=== PATIENT | male | born 1960 | race Caucasian/White ===

== ENCOUNTER 2019-11-23 12:58 | Inpatient (IN) | payer BC, OTHER ==
[~2019-11-23] VITALS: Ht 172.7 cm; Wt 92.0 kg
[~2019-11-23 12:58] MED LIST: IBUP100T8 PO
--- NOTE | 2019-11-23 13:24 | PHYS DOC ---
Past Medical History Past Medical History: No Pertinent History Past Surgical History: Other Additional Past Surgical Histo: umbilical hernia repair, carpal tunnel release, tendon release left wrist Smoking Status: Current Every Day Smoker Alcohol Use: Occasionally Drug Use: None General Adult EDM: Chief Complaint: Abdominal pain HPI: HPI: Patient is a 59 year old male who was brought here by EMS from home due to abdominal pain, abdominal distention for the last 2 days. Patient feels his belly gets distended, he has been able to pass gas and have bowel movement, denies any fever, no chest pain, no trouble breathing. Patient described the pain as cramping in nature. Patient said he gave himself several enema but just liquid coming out. Review of Systems: Review of Systems: Constitutional: Denies fever or chills. [] Eyes: Denies change in visual acuity. [] HENT: Denies nasal congestion or sore throat. [] Respiratory: Denies cough or shortness of breath. [] Cardiovascular: Denies chest pain or edema. [] GI: Positive abdominal pain, nausea, diarrhea, no vomiting. : Denies dysuria. [] Musculoskeletal: Denies back pain or joint pain. [] Integument: Denies rash. [] Neurologic: Denies headache, focal weakness or sensory changes. [] Endocrine: Denies polyuria or polydipsia. [] Lymphatic: Denies swollen glands. [] Psychiatric: Denies depression or anxiety. [] Heart Score: Risk Factors: Risk Factors: DM, Current or recent (<one month) smoker, HTN, HLP, family history of CAD, obesity. Risk Scores: Score 0 - 3: 2.5% MACE over next 6 weeks - Discharge Home Score 4 - 6: 20.3% MACE over next 6 weeks - Admit for Clinical Observation Score 7 - 10: 72.7% MACE over next 6 weeks - Early Invasive Strategies Allergies: Allergies: Allergies Coded Allergies Type Severity Reaction Last Updated Verified No Known Drug Allergies 02/01/14 No Physical Exam: PE: Constitutional: Well developed, well nourished, no acute distress, non-toxic appearance. [] HENT: Normocephalic, atraumatic, bilateral external ears normal, oropharynx moist, no oral exudates, nose normal. [] Eyes: PERRLA, EOMI, conjunctiva normal, no discharge. [] Neck: Normal range of motion, no tenderness, supple, no stridor. [] Cardiovascular:Heart rate regular rhythm, no murmur [] Lungs & Thorax: Bilateral breath sounds clear to auscultation [] Abdomen: Hyperactive bowel sounds, no guarding, no rebound, soft, no tenderness, no masses, no pulsatile masses. abdomen is distended. Skin: Warm, dry, no erythema, no rash. [] Back: No tenderness, no CVA tenderness. [] Extremities: No tenderness, no cyanosis, no clubbing, ROM intact, no edema. [] Neurologic: Alert and oriented X 3, normal motor function, normal sensory function, no focal deficits noted. [] Psychologic: Affect normal, judgement normal, mood normal. [] Current Patient Data: Labs: Laboratory Tests Test 11/23/19 13:16 11/23/19 14:27 White Blood Count 15.2 x10^3/uL Red Blood Count 5.40 x10^6/uL Hemoglobin 16.2 g/dL Hematocrit 47.2 % Mean Corpuscular Volume 88 fL Mean Corpuscular Hemoglobin 30 pg Mean Corpuscular Hemoglobin Concent 34 g/dL Red Cell Distribution Width 13.2 % Platelet Count 268 x10^3/uL Neutrophils (%) (Auto) 83 % Lymphocytes (%) (Auto) 9 % Monocytes (%) (Auto) 8 % Eosinophils (%) (Auto) 1 % Basophils (%) (Auto) 0 % Neutrophils # (Auto) 12.5 x10^3/uL Lymphocytes # (Auto) 1.3 x10^3/uL Monocytes # (Auto) 1.2 x10^3/uL Eosinophils # (Auto) 0.1 x10^3/uL Basophils # (Auto) 0.1 x10^3/uL Prothrombin Time 13.4 SEC Prothromb Time International Ratio 1.1 Activated Partial Thromboplast Time 29 SEC Sodium Level 137 mmol/L Potassium Level 3.9 mmol/L Chloride Level 102 mmol/L Carbon Dioxide Level 25 mmol/L Anion Gap 10 Blood Urea Nitrogen 21 mg/dL Creatinine 1.5 mg/dL Estimated GFR (Cockcroft-Gault) 47.6 BUN/Creatinine Ratio 14 Glucose Level 97 mg/dL Calcium Level 8.8 mg/dL Magnesium Level 2.0 mg/dL Total Bilirubin 0.6 mg/dL Aspartate Amino Transf (AST/SGOT) 43 U/L Alanine Aminotransferase (ALT/SGPT) 84 U/L Alkaline Phosphatase 107 U/L Total Protein 7.9 g/dL Albumin 4.0 g/dL Albumin/Globulin Ratio 1.0 Lipase 116 U/L Urine Collection Type Void Urine Color Yellow Urine Clarity Clear Urine pH 6.0 Urine Specific [place] 1.010 Urine Protein Negative mg/dL Urine Glucose (UA) Negative mg/dL Urine Ketones (Stick) Negative mg/dL Urine Blood Small Urine Nitrite Negative Urine Bilirubin Negative Urine Urobilinogen Dipstick 0.2 mg/dL Urine Leukocyte Esterase Negative Urine RBC 1-2 /HPF Urine WBC 1-4 /HPF Urine Squamous Epithelial Cells Occ /LPF Urine Bacteria 0 /HPF Urine Hyaline Casts Occasional /HPF Urine Granular Casts Occasional /HPF Current Medications Medications (Trade) Dose Ordered Sig/Ean Route PRN Reason Start Time Stop Time Status Last Admin Dose Admin Metronidazole 100 ml @ 100 mls/hr Q8HRS IV 11/23/19 22:00 UNV Metronidazole 100 ml @ 100 mls/hr 1X ONCE IV 11/23/19 15:30 11/23/19 16:29 11/23/19 15:39 Vital Signs: Laboratory Tests Test 11/23/19 13:16 11/23/19 14:27 White Blood Count 15.2 x10^3/uL Red Blood Count 5.40 x10^6/uL Hemoglobin 16.2 g/dL Hematocrit 47.2 % Mean Corpuscular Volume 88 fL Mean Corpuscular Hemoglobin 30 pg Mean Corpuscular Hemoglobin Concent 34 g/dL Red Cell Distribution Width 13.2 % Platelet Count 268 x10^3/uL Neutrophils (%) (Auto) 83 % Lymphocytes (%) (Auto) 9 % Monocytes (%) (Auto) 8 % Eosinophils (%) (Auto) 1 % Basophils (%) (Auto) 0 % Neutrophils # (Auto) 12.5 x10^3/uL Lymphocytes # (Auto) 1.3 x10^3/uL Monocytes # (Auto) 1.2 x10^3/uL Eosinophils # (Auto) 0.1 x10^3/uL Basophils # (Auto) 0.1 x10^3/uL Prothrombin Time 13.4 SEC Prothromb Time International Ratio 1.1 Activated Partial Thromboplast Time 29 SEC Sodium Level 137 mmol/L Potassium Level 3.9 mmol/L Chloride Level 102 mmol/L Carbon Dioxide Level 25 mmol/L Anion Gap 10 Blood Urea Nitrogen 21 mg/dL Creatinine 1.5 mg/dL Estimated GFR (Cockcroft-Gault) 47.6 BUN/Creatinine Ratio 14 Glucose Level 97 mg/dL Calcium Level 8.8 mg/dL Magnesium Level 2.0 mg/dL Total Bilirubin 0.6 mg/dL Aspartate Amino Transf (AST/SGOT) 43 U/L Alanine Aminotransferase (ALT/SGPT) 84 U/L Alkaline Phosphatase 107 U/L Total Protein 7.9 g/dL Albumin 4.0 g/dL Albumin/Globulin Ratio 1.0 Lipase 116 U/L Urine Collection Type Void Urine Color Yellow Urine Clarity Clear Urine pH 6.0 Urine Specific [place] 1.010 Urine Protein Negative mg/dL Urine Glucose (UA) Negative mg/dL Urine Ketones (Stick) Negative mg/dL Urine Blood Small Urine Nitrite Negative Urine Bilirubin Negative Urine Urobilinogen Dipstick 0.2 mg/dL Urine Leukocyte Esterase Negative Urine RBC 1-2 /HPF Urine WBC 1-4 /HPF Urine Squamous Epithelial Cells Occ /LPF Urine Bacteria 0 /HPF Urine Hyaline Casts Occasional /HPF Urine Granular Casts Occasional /HPF Current Medications Medications (Trade) Dose Ordered Sig/Ean Route PRN Reason Start Time Stop Time Status Last Admin Dose Admin Metronidazole 100 ml @ 100 mls/hr Q8HRS IV 11/23/19 22:00 UNV Metronidazole 100 ml @ 100 mls/hr 1X ONCE IV 11/23/19 15:30 11/23/19 16:29 11/23/19 15:39 EKG: EKG: [] Radiology/Procedures: Radiology/Procedures: [][facility] [address] [place], [place] [id number] IMAGING REPORT Signed PATIENT: UMESH HERBERT ACCOUNT: [id number] : 1960 LOCATION: ER AGE: 59 SEX: M EXAM STATUS: REG ER ORD. PHYSICIAN: ZHANG SOTO DO REASON: ABDOMINAL PAIN, NAUSEA FOR TWO DAYS PROCEDURE: CT ABDOMEN PELVIS WO CONTRAST PQRS Compliance Statement: One or more of the following individualized dose reduction techniques were utilized for this examination: 1. Automated exposure control 2. Adjustment of the mA and/or kV according to patient size 3. Use of iterative reconstruction technique CT abdomen/pelvis without contrast 11/23/2019 1:42 PM INDICATION: Abdominal pain, nausea for 2 days COMPARISON: None available TECHNIQUE: Multiple axial CT images of the abdomen and pelvis were obtained without intravenous contrast. Coronal and sagittal reformats are provided. FINDINGS: Lung bases are clear. Heart size is within normal limits. Diffuse hepatic steatosis. Ill-defined hypoattenuating lesion in segment IV measures 13 mm (series 2, image 18). Spleen, bilateral adrenal glands, pancreas and gallbladder are normal in appearance. Abdominal aorta is normal in caliber. No suspicious retroperitoneal lymph nodes. No suspicious abdominal or pelvic lymph nodes. No free fluid or free intraperitoneal air. Fluid is noted within the left colon, sigmoid colon and rectum. Correlate with diarrhea. Appendix is normal. Mild hazy attenuation is identified within the root of small bowel mesentery. Borderline enlarged mesenteric lymph node is present measuring 9 mm (series 2, image 36). There is a 3 mm nonobstructing calculus in interpolar right kidney. There is a 5 mm calculus at the right ureteropelvic junction with mild right hydronephrosis. Urinary bladder is within normal limits given degree of distention. Prostate and seminal vesicles are normal. Small bilateral inguinal hernias containing fat. No suspicious osseous abnormality is identified. IMPRESSION: 1. 5 mm calculus is identified at the right ureteropelvic junction resulting in mild right hydronephrosis. There is an additional 3 mm nonobstructing calculus in the interpolar right kidney. 2. Mild hazy attenuation within the root of small bowel mesentery borderline enlarged lymph nodes suggestive of mesenteric adenitis. 3-6 month follow-up CT abdomen/pelvis is recommended for further evaluation. 3. Hepatic steatosis. Ill-defined hypoattenuating lesion in segment IV measures 13 mm and is indeterminate. Further catheterization with abdominal MRI with and without contrast is recommended. 4. Fluid-filled left colon, sigmoid colon and rectum. Correlate with history of diarrhea. Electronically signed by: Robin Mcgill MD (11/23/2019 2:21 PM) [id number] DICTATED and SIGNED BY: ROBIN MCGILL MD DATE: 11/23/19 1421 Course & Med Decision Making: Course & Med Decision Making Pertinent Labs and Imaging studies reviewed. (See chart for details) Patient is a 59-year-old male who was evaluated in ER due to abdominal pain with abdominal distention associated with nausea. Patient was found to have gastroenteritis and leukocytosis. He has a kidney stone on the right side kidney at the ureteropelvic junction, patient indicated that he always had a kidney stone there, and he denies any flank pain. Patient's symptoms today is not relating to kidney stone problem. Patient will be admitted to hospital for further evaluation and treatment. Discussed with Dr. Peñaloza who agreed to admit the patient. Dragon Disclaimer: Dragon Disclaimer: This electronic medical record was generated, in whole or in part, using a voice recognition dictation system. Departure Departure Impression: Primary Impression: Gastroenteritis Additional Impression: Leukocytosis Disposition: ADMITTED INPATIENT Admitting Physician: JOSE ALEJANDRO (Dr. Peñaloza) Condition: IMPROVED Referrals: CHENTE MIRANDA (PCP) Justicifation of Admission Dx: Justifications for Admission: Justification of Admission Dx: N/A ZHANG SOTO DO Nov 23, 2019 13:24
[2019-11-23 13:34] LABS: BASO # 0.1 x10^3/uL (0.0-0.2); BASO % 0 % (0-3); EOS # 0.1 x10^3/uL (0.0-0.7); EOS % 1 % (0-3); HEMATOCRIT 47.2 % (39.0-53.0); HEMOGLOBIN 16.2 g/dL (13.0-17.5); LYMPH # 1.3 x10^3/uL (1.0-4.8); LYMPH % 9 % (24-48); MEAN CORPUSCULAR HEMOGLOBIN 30 pg (25-35); MEAN CORPUSCULAR HGB CONC 34 g/dL (31-37); MEAN CORPUSCULAR VOLUME 88 fL (79-100); MONO # 1.2 x10^3/uL (0.0-1.1); MONO % 8 % (0-9); NEUT # 12.5 x10^3/uL (1.8-7.7); NEUT % 83 % (31-73); PLATELET COUNT 268 x10^3/uL (140-400); RED CELL DISTRIBUTION WIDTH 13.2 % (11.5-14.5); WHITE BLOOD COUNT 15.2 x10^3/uL (4.0-11.0)
[2019-11-23 13:39] LABS: CALCIUM 8.8 mg/dL (8.5-10.1); CREATININE 1.5 mg/dL (0.7-1.3); GFR 47.6; POTASSIUM 3.9 mmol/L (3.5-5.1)
[2019-11-23 13:44] LABS: PROTHROMBIN TIME PATIENT 13.4 SEC (11.7-14.0); TOTAL BILIRUBIN 0.6 mg/dL (0.2-1.0); TOTAL PROTEIN 7.9 g/dL (6.4-8.2)
--- NOTE | 2019-11-23 14:24 | RAD ---
PQRS Compliance Statement: One or more of the following individualized dose reduction techniques were utilized for this examination: 1. Automated exposure control 2. Adjustment of the mA and/or kV according to patient size 3. Use of iterative reconstruction technique CT abdomen/pelvis without contrast 11/23/2019 1:42 PM INDICATION: Abdominal pain, nausea for 2 days COMPARISON: None available TECHNIQUE: Multiple axial CT images of the abdomen and pelvis were obtained without intravenous contrast. Coronal and sagittal reformats are provided. FINDINGS: Lung bases are clear. Heart size is within normal limits. Diffuse hepatic steatosis. Ill-defined hypoattenuating lesion in segment IV measures 13 mm (series 2, image 18). Spleen, bilateral adrenal glands, pancreas and gallbladder are normal in appearance. Abdominal aorta is normal in caliber. No suspicious retroperitoneal lymph nodes. No suspicious abdominal or pelvic lymph nodes. No free fluid or free intraperitoneal air. Fluid is noted within the left colon, sigmoid colon and rectum. Correlate with diarrhea. Appendix is normal. Mild hazy attenuation is identified within the root of small bowel mesentery. Borderline enlarged mesenteric lymph node is present measuring 9 mm (series 2, image 36). There is a 3 mm nonobstructing calculus in interpolar right kidney. There is a 5 mm calculus at the right ureteropelvic junction with mild right hydronephrosis. Urinary bladder is within normal limits given degree of distention. Prostate and seminal vesicles are normal. Small bilateral inguinal hernias containing fat. No suspicious osseous abnormality is identified. IMPRESSION: 1. 5 mm calculus is identified at the right ureteropelvic junction resulting in mild right hydronephrosis. There is an additional 3 mm nonobstructing calculus in the interpolar right kidney. 2. Mild hazy attenuation within the root of small bowel mesentery borderline enlarged lymph nodes suggestive of mesenteric adenitis. 3-6 month follow-up CT abdomen/pelvis is recommended for further evaluation. 3. Hepatic steatosis. Ill-defined hypoattenuating lesion in segment IV measures 13 mm and is indeterminate. Further catheterization with abdominal MRI with and without contrast is recommended. 4. Fluid-filled left colon, sigmoid colon and rectum. Correlate with history of diarrhea. Electronically signed by: Faye Boogie MD (11/23/2019 2:21 PM) [id number]
[2019-11-23 14:37] LABS: BILIRUBIN,URINE NEGATIVE (NEG); CLARITY,URINE CLEAR; COLOR,URINE YELLOW; NITRITE,URINE NEGATIVE (NEG); PROTEIN,URINE NEGATIVE (NEG-TRACE); UROBILINOGEN,URINE 0.2 mg/dL (0.2 mg/dL)
[2019-11-23 14:48] LABS: BACTERIA,URINE 0 /HPF (0-FEW); GRANULAR CASTS,URINE OCCASIONAL /HPF; HYALINE CASTS, URINE OCCASIONAL /HPF; SQUAMOUS EPITHELIAL CELL,UR OCC /LPF
[2019-11-23] MEDS ORDERED: IV NORMAL SALINE 1000ML BAG 1,000 ML IV ONE (16:00)
[2019-11-23] MEDS ORDERED: ONDANSETRON PF 4 MG/2 ML VIAL. IV PRN (16:30)
[2019-11-23] MEDS: MORPHINE SULFATE 2 MG/ML VIAL. IV PRN ×2 (16:32→21:52)
--- NOTE | 2019-11-23 17:33 | PDOC1 ---
History and Physical Date of Admission: Date of Admission DATE: 11/23/19 TIME: 17:32 Chief Complaint: Problems: (1) Cervical sprain (2) Head injury, closed (3) Head injury, closed (4) Gastroenteritis (5) Leukocytosis Chief Complain: Abdominal pain History of Present Illness: HPI: Patient is a 59 year old male who was brought here by EMS from home due to abdominal pain, abdominal distention for the last 2 days. Patient feels his belly gets distended, he has been able to pass gas and have bowel movement, denies any fever, no chest pain, no trouble breathing. Patient described the pain as cramping in nature. Patient said he gave himself several enema but just liquid coming out. Past Medical/Surgical History: PMH/PSH: Close head injury gastroenteritis constipation Allergies: Allergies: Coded Allergies: No Known Drug Allergies (Unverified , 02/01/14) Family History: Family History: Hypertension Social History: Social History: He does not drink smoke or take drugs he works at [employer] Current Medications: Current Medications Current Medications Metronidazole 100 ml @ 100 mls/hr Q8HRS IV ; Start 11/23/19 at 22:00 Metronidazole 100 ml @ 100 mls/hr 1X ONCE IV Last administered on 11/23/19at 15:39; Start 11/23/19 at 15:30; Stop 11/23/19 at 16:29; Status DC Sodium Chloride 1,000 ml @ 1,000 mls/hr 1X ONCE IV Last administered on 11/23/19at 16:32; Start 11/23/19 at 16:00; Stop 11/23/19 at 16:59; Status DC Ondansetron HCl (Zofran) 4 mg PRN Q8HRS PRN IV NAUSEA/VOMITING; Start 11/23/19 at 16:30; Stop 11/24/19 at 16:29 Morphine Sulfate (Morphine Sulfate) 2 mg PRN Q2HR PRN IV PAIN Last administered on 11/23/19at 16:32; Start 11/23/19 at 16:30; Stop 11/24/19 at 16:29 Active Scripts Active Reported Ibuprofen 100 Mg Tablet 400 Mg PO PRN ROS: Review of Systems Review of System REVIEW OF SYSTEMS: GENERAL: Denies weakness SKIN: No bruising, hair changes or rashes. EYES: No blurred, double or loss of vision. NOSE AND THROAT: No history of nosebleeds, hoarseness or sore throat. HEART: No history of palpitations, chest pain or shortness of breath on exertion. LUNGS: Denies cough, hemoptysis, wheezing or shortness of breath. GASTROINTESTINAL: Complains of abdominal pain and constipation GENITOURINARY: No history of frequency, urgency, hesitancy or nocturia. NEUROLOGIC: Denies history of numbness, tingling, or tremor. PSYCHIATRIC: No history of panic, anxiety or depression. ENDOCRINE: No history of heat or cold intolerance, polyuria or polydipsia. EXTREMITIES: Denies joint pain, pain on walking or stiffness. Physical Exam: Vital Signs: Vital Signs Date Time Temp Pulse Resp B/P (MAP) Pulse Ox O2 Delivery O2 Flow Rate FiO2 11/23/19 13:20 98.7 70 16 173/103 (126) 98 Room Air 98.7 Physcial Exam: GEN: No apparent distress. Alert and oriented HEENT: Normal cephalic, atraumatic, external auditory canals are patent EYES: Extraocular muscles are intact, pupil are equally round and reactive to light and accommodation MUSCULOSKELETAL: Well developed , well nourished, good range of motion ENDOCRINE: No thyromegaly was palpated LYMPHATICS: No cervical chain or axillary nodes were noted HEMATOPOIETIC: No bruising NECK: Supple, no JVD, no thyromegaly was noted LUNGS: Clear to auscultation in all lung johnson without rhonchi or wheezing HEART: RRR, S!, S2 present. Peripheral pulses intact, no obvious murmurs no miguel ABDOMEN: Soft, nontender. Positive bowel sounds, no organomegaly, normal bowel sounds EXTREMITIES: Without clubbing, cyanosis, or edema. Pedal pulses intact. Negative Homans sign NEUROLOGIC: Normal speech and tone. A&O x 3, moves all extremities, no obvious focal deficits PSYCHIATRIC: Normal affect, normal mood. Stable SKIN: No ulcerations or rashes, good skin turgor, no jaundice VASCULAR: Good capillary refill, neurovascular bundle appears to be intact Labs: Labs: Laboratory Tests Test 11/23/19 13:16 11/23/19 14:27 White Blood Count 15.2 x10^3/uL (4.0-11.0) Red Blood Count 5.40 x10^6/uL (4.30-5.70) Hemoglobin 16.2 g/dL (13.0-17.5) Hematocrit 47.2 % (39.0-53.0) Mean Corpuscular Volume 88 fL (79-100) Mean Corpuscular Hemoglobin 30 pg (25-35) Mean Corpuscular Hemoglobin Concent 34 g/dL (31-37) Red Cell Distribution Width 13.2 % (11.5-14.5) Platelet Count 268 x10^3/uL (140-400) Neutrophils (%) (Auto) 83 % (31-73) Lymphocytes (%) (Auto) 9 % (24-48) Monocytes (%) (Auto) 8 % (0-9) Eosinophils (%) (Auto) 1 % (0-3) Basophils (%) (Auto) 0 % (0-3) Neutrophils # (Auto) 12.5 x10^3/uL (1.8-7.7) Lymphocytes # (Auto) 1.3 x10^3/uL (1.0-4.8) Monocytes # (Auto) 1.2 x10^3/uL (0.0-1.1) Eosinophils # (Auto) 0.1 x10^3/uL (0.0-0.7) Basophils # (Auto) 0.1 x10^3/uL (0.0-0.2) Prothrombin Time 13.4 SEC (11.7-14.0) Prothromb Time International Ratio 1.1 (0.8-1.1) Activated Partial Thromboplast Time 29 SEC (24-38) Sodium Level 137 mmol/L (136-145) Potassium Level 3.9 mmol/L (3.5-5.1) Chloride Level 102 mmol/L (98-107) Carbon Dioxide Level 25 mmol/L (21-32) Anion Gap 10 (6-14) Blood Urea Nitrogen 21 mg/dL (8-26) Creatinine 1.5 mg/dL (0.7-1.3) Estimated GFR (Cockcroft-Gault) 47.6 BUN/Creatinine Ratio 14 (6-20) Glucose Level 97 mg/dL (70-99) Calcium Level 8.8 mg/dL (8.5-10.1) Magnesium Level 2.0 mg/dL (1.8-2.4) Total Bilirubin 0.6 mg/dL (0.2-1.0) Aspartate Amino Transf (AST/SGOT) 43 U/L (15-37) Alanine Aminotransferase (ALT/SGPT) 84 U/L (16-63) Alkaline Phosphatase 107 U/L (46-116) Total Protein 7.9 g/dL (6.4-8.2) Albumin 4.0 g/dL (3.4-5.0) Albumin/Globulin Ratio 1.0 (1.0-1.7) Lipase 116 U/L (73-393) Urine Collection Type Void Urine Color Yellow Urine Clarity Clear Urine pH 6.0 (<5.0-8.0) Urine Specific [place] 1.010 (1.000-1.030) Urine Protein Negative mg/dL (NEG-TRACE) Urine Glucose (UA) Negative mg/dL (NEG) Urine Ketones (Stick) Negative mg/dL (NEG) Urine Blood Small (NEG) Urine Nitrite Negative (NEG) Urine Bilirubin Negative (NEG) Urine Urobilinogen Dipstick 0.2 mg/dL (0.2 mg/dL) Urine Leukocyte Esterase Negative (NEG) Urine RBC 1-2 /HPF (0-2) Urine WBC 1-4 /HPF (0-4) Urine Squamous Epithelial Cells Occ /LPF Urine Bacteria 0 /HPF (0-FEW) Urine Hyaline Casts Occasional /HPF Urine Granular Casts Occasional /HPF Laboratory Tests Test 11/23/19 13:16 11/23/19 14:27 White Blood Count 15.2 x10^3/uL (4.0-11.0) Red Blood Count 5.40 x10^6/uL (4.30-5.70) Hemoglobin 16.2 g/dL (13.0-17.5) Hematocrit 47.2 % (39.0-53.0) Mean Corpuscular Volume 88 fL (79-100) Mean Corpuscular Hemoglobin 30 pg (25-35) Mean Corpuscular Hemoglobin Concent 34 g/dL (31-37) Red Cell Distribution Width 13.2 % (11.5-14.5) Platelet Count 268 x10^3/uL (140-400) Neutrophils (%) (Auto) 83 % (31-73) Lymphocytes (%) (Auto) 9 % (24-48) Monocytes (%) (Auto) 8 % (0-9) Eosinophils (%) (Auto) 1 % (0-3) Basophils (%) (Auto) 0 % (0-3) Neutrophils # (Auto) 12.5 x10^3/uL (1.8-7.7) Lymphocytes # (Auto) 1.3 x10^3/uL (1.0-4.8) Monocytes # (Auto) 1.2 x10^3/uL (0.0-1.1) Eosinophils # (Auto) 0.1 x10^3/uL (0.0-0.7) Basophils # (Auto) 0.1 x10^3/uL (0.0-0.2) Prothrombin Time 13.4 SEC (11.7-14.0) Prothromb Time International Ratio 1.1 (0.8-1.1) Activated Partial Thromboplast Time 29 SEC (24-38) Sodium Level 137 mmol/L (136-145) Potassium Level 3.9 mmol/L (3.5-5.1) Chloride Level 102 mmol/L (98-107) Carbon Dioxide Level 25 mmol/L (21-32) Anion Gap 10 (6-14) Blood Urea Nitrogen 21 mg/dL (8-26) Creatinine 1.5 mg/dL (0.7-1.3) Estimated GFR (Cockcroft-Gault) 47.6 BUN/Creatinine Ratio 14 (6-20) Glucose Level 97 mg/dL (70-99) Calcium Level 8.8 mg/dL (8.5-10.1) Magnesium Level 2.0 mg/dL (1.8-2.4) Total Bilirubin 0.6 mg/dL (0.2-1.0) Aspartate Amino Transf (AST/SGOT) 43 U/L (15-37) Alanine Aminotransferase (ALT/SGPT) 84 U/L (16-63) Alkaline Phosphatase 107 U/L (46-116) Total Protein 7.9 g/dL (6.4-8.2) Albumin 4.0 g/dL (3.4-5.0) Albumin/Globulin Ratio 1.0 (1.0-1.7) Lipase 116 U/L (73-393) Urine Collection Type Void Urine Color Yellow Urine Clarity Clear Urine pH 6.0 (<5.0-8.0) Urine Specific [place] 1.010 (1.000-1.030) Urine Protein Negative mg/dL (NEG-TRACE) Urine Glucose (UA) Negative mg/dL (NEG) Urine Ketones (Stick) Negative mg/dL (NEG) Urine Blood Small (NEG) Urine Nitrite Negative (NEG) Urine Bilirubin Negative (NEG) Urine Urobilinogen Dipstick 0.2 mg/dL (0.2 mg/dL) Urine Leukocyte Esterase Negative (NEG) Urine RBC 1-2 /HPF (0-2) Urine WBC 1-4 /HPF (0-4) Urine Squamous Epithelial Cells Occ /LPF Urine Bacteria 0 /HPF (0-FEW) Urine Hyaline Casts Occasional /HPF Urine Granular Casts Occasional /HPF Assessment/Plan Assessment/Plan Leukocytosis and enteritis and [place] male with constipation Plan IV antibiotics IV fluids Consult GI Home meds DVT prophylaxis Full code Justicifation of Admission Dx: Justifications for Admission: Justification of Admission Dx: N/A JACKI VENCES III DO Nov 23, 2019 17:33
[2019-11-23 19:00] VITALS: BP 155/88
[2019-11-23] MEDS: IV NORMAL SALINE 1000ML BAG 1,000 ML IV SCH (19:30)
[2019-11-23] MEDS: ACETAMINOPHEN 325 MG TABLET. PO PRN (19:31)
[2019-11-23 23:00] VITALS: BP 133/87
[2019-11-24 03:00] VITALS: BP 133/76
[2019-11-24] MEDS: IV NORMAL SALINE 1000ML BAG 1,000 ML IV SCH ×2 (04:43→14:38)
[2019-11-24] MEDS: ACETAMINOPHEN 325 MG TABLET. PO PRN ×2 (06:09→14:41)
[2019-11-24 07:00] VITALS: BP 99/68
--- NOTE | 2019-11-24 09:13 | NUR ---
SW following. Discussed with RN, pt from home, room air, clear liquid diet. RN anticipates pt will discharge home on PO abx. Addendum: 11/24/19 at 1527 by [employer] Pt having an EGD and colonoscopy tomorrow (11/25/2019). MÓNICA discussed with Dr. Boyd, possible transfer to [facility] if stone is not passed. MÓNICA will continue to follow.
--- NOTE | 2019-11-24 09:16 | PDOC ---
PROGRESS NOTES History of Present Illness History of Present Illness impression ACUTE ABDOMINAL PAIN, RLQ Leukocytosis enteritis in 59 yr old male with constipation 5 mm calculus is identified at the right ureteropelvic junction resulting in mild right hydronephrosis. There is an additional 3 mm nonobstructing calculus in the interpolar right kidney. Hepatic steatosis. Ill-defined hypoattenuating lesion in segment IV measures 13 mm and is indeterminate. Further catheterization with abdominal MRI with and without contrast is recommended. Plan IV antibiotics IV fluids NPO Consult GI Home meds DVT prophylaxis Full code urology consult may be indicated D/W CASE MGT Vitals Vitals Vital Signs Date Time Temp Pulse Resp B/P (MAP) Pulse Ox O2 Delivery O2 Flow Rate FiO2 11/24/19 07:54 Room Air 11/24/19 07:00 97.9 59 18 99/68 (78) 93 97.9 Physical Exam Physical Exam HEENT: Normal cephalic, atraumatic, external auditory canals are patent EYES: Extraocular muscles are intact, pupil are equally round and reactive to light and accommodation MUSCULOSKELETAL: Well developed , well nourished, good range of motion ENDOCRINE: No thyromegaly was palpated LYMPHATICS: No cervical chain or axillary nodes were noted HEMATOPOIETIC: No bruising NECK: Supple, no JVD, no thyromegaly was noted LUNGS: Clear to auscultation in all lung johnson without rhonchi or wheezing HEART: RRR, S!, S2 present. Peripheral pulses intact, no obvious murmurs noted ABDOMEN: Soft, nontender. Positive bowel sounds, no organomegaly, normal bowel sounds MILD RLQ TENDERNESS NO REBOUND EXTREMITIES: Without clubbing, cyanosis, or edema. Pedal pulses intact. Negative Homans sign NEUROLOGIC: Normal speech and tone. A&O x 3, moves all extremities, no obvious focal deficits PSYCHIATRIC: Normal affect, normal mood. Stable SKIN: No ulcerations or rashes, good skin turgor, no jaundice VASCULAR: Good capillary refill, neurovascular bundle appears to be intact General: Alert, Oriented X3, Cooperative, No acute distress Heart: Regular rate, Normal S1, Normal S2 Abdomen: Normal bowel sounds, Soft Extremities: No cyanosis Skin: No rashes Labs LABS PQRS Compliance Statement: One or more of the following individualized dose reduction techniques were utilized for this examination: 1. Automated exposure control 2. Adjustment of the mA and/or kV according to patient size 3. Use of iterative reconstruction technique CT abdomen/pelvis without contrast 11/23/2019 1:42 PM INDICATION: Abdominal pain, nausea for 2 days COMPARISON: None available TECHNIQUE: Multiple axial CT images of the abdomen and pelvis were obtained without intravenous contrast. Coronal and sagittal reformats are provided. FINDINGS: Lung bases are clear. Heart size is within normal limits. Diffuse hepatic steatosis. Ill-defined hypoattenuating lesion in segment IV measures 13 mm (series 2, image 18). Spleen, bilateral adrenal glands, pancreas and gallbladder are normal in appearance. Abdominal aorta is normal in caliber. No suspicious retroperitoneal lymph nodes. No suspicious abdominal or pelvic lymph nodes. No free fluid or free intraperitoneal air. Fluid is noted within the left colon, sigmoid colon and rectum. Correlate with diarrhea. Appendix is normal. Mild hazy attenuation is identified within the root of small bowel mesentery. Borderline enlarged mesenteric lymph node is present measuring 9 mm (series 2, image 36). There is a 3 mm nonobstructing calculus in interpolar right kidney. There is a 5 mm calculus at the right ureteropelvic junction with mild right hydronephrosis. Urinary bladder is within normal limits given degree of distention. Prostate and seminal vesicles are normal. Small bilateral inguinal hernias containing fat. No suspicious osseous abnormality is identified. IMPRESSION: 1. 5 mm calculus is identified at the right ureteropelvic junction resulting in mild right hydronephrosis. There is an additional 3 mm nonobstructing calculus in the interpolar right kidney. 2. Mild hazy attenuation within the root of small bowel mesentery borderline enlarged lymph nodes suggestive of mesenteric adenitis. 3-6 month follow-up CT abdomen/pelvis is recommended for further evaluation. 3. Hepatic steatosis. Ill-defined hypoattenuating lesion in segment IV measures 13 mm and is indeterminate. Further catheterization with abdominal MRI with and without contrast is recommended. 4. Fluid-filled left colon, sigmoid colon and rectum. Correlate with history of diarrhea. Electronically signed by: Robin Boogie MD (11/23/2019 2:21 PM) [id number] DICTATED and SIGNED BY: ROBIN BOOGIE MD DATE: 11/23/19 1421 Laboratory Tests Test 11/23/19 13:16 11/23/19 14:27 White Blood Count 15.2 x10^3/uL (4.0-11.0) Red Blood Count 5.40 x10^6/uL (4.30-5.70) Hemoglobin 16.2 g/dL (13.0-17.5) Hematocrit 47.2 % (39.0-53.0) Mean Corpuscular Volume 88 fL (79-100) Mean Corpuscular Hemoglobin 30 pg (25-35) Mean Corpuscular Hemoglobin Concent 34 g/dL (31-37) Red Cell Distribution Width 13.2 % (11.5-14.5) Platelet Count 268 x10^3/uL (140-400) Neutrophils (%) (Auto) 83 % (31-73) Lymphocytes (%) (Auto) 9 % (24-48) Monocytes (%) (Auto) 8 % (0-9) Eosinophils (%) (Auto) 1 % (0-3) Basophils (%) (Auto) 0 % (0-3) Neutrophils # (Auto) 12.5 x10^3/uL (1.8-7.7) Lymphocytes # (Auto) 1.3 x10^3/uL (1.0-4.8) Monocytes # (Auto) 1.2 x10^3/uL (0.0-1.1) Eosinophils # (Auto) 0.1 x10^3/uL (0.0-0.7) Basophils # (Auto) 0.1 x10^3/uL (0.0-0.2) Prothrombin Time 13.4 SEC (11.7-14.0) Prothromb Time International Ratio 1.1 (0.8-1.1) Activated Partial Thromboplast Time 29 SEC (24-38) Sodium Level 137 mmol/L (136-145) Potassium Level 3.9 mmol/L (3.5-5.1) Chloride Level 102 mmol/L (98-107) Carbon Dioxide Level 25 mmol/L (21-32) Anion Gap 10 (6-14) Blood Urea Nitrogen 21 mg/dL (8-26) Creatinine 1.5 mg/dL (0.7-1.3) Estimated GFR (Cockcroft-Gault) 47.6 BUN/Creatinine Ratio 14 (6-20) Glucose Level 97 mg/dL (70-99) Calcium Level 8.8 mg/dL (8.5-10.1) Magnesium Level 2.0 mg/dL (1.8-2.4) Total Bilirubin 0.6 mg/dL (0.2-1.0) Aspartate Amino Transf (AST/SGOT) 43 U/L (15-37) Alanine Aminotransferase (ALT/SGPT) 84 U/L (16-63) Alkaline Phosphatase 107 U/L (46-116) Total Protein 7.9 g/dL (6.4-8.2) Albumin 4.0 g/dL (3.4-5.0) Albumin/Globulin Ratio 1.0 (1.0-1.7) Lipase 116 U/L (73-393) Urine Collection Type Void Urine Color Yellow Urine Clarity Clear Urine pH 6.0 (<5.0-8.0) Urine Specific [place] 1.010 (1.000-1.030) Urine Protein Negative mg/dL (NEG-TRACE) Urine Glucose (UA) Negative mg/dL (NEG) Urine Ketones (Stick) Negative mg/dL (NEG) Urine Blood Small (NEG) Urine Nitrite Negative (NEG) Urine Bilirubin Negative (NEG) Urine Urobilinogen Dipstick 0.2 mg/dL (0.2 mg/dL) Urine Leukocyte Esterase Negative (NEG) Urine RBC 1-2 /HPF (0-2) Urine WBC 1-4 /HPF (0-4) Urine Squamous Epithelial Cells Occ /LPF Urine Bacteria 0 /HPF (0-FEW) Urine Hyaline Casts Occasional /HPF Urine Granular Casts Occasional /HPF Assessment and Plan Assessmemt and Plan Problems Medical Problems: (1) Gastroenteritis Status: Acute (2) Leukocytosis Status: Acute Comment Review of Relevant I have reviewed the following items colleen (where applicable) has been applied. Labs Laboratory Tests Test 11/23/19 13:16 11/23/19 14:27 White Blood Count 15.2 x10^3/uL (4.0-11.0) Red Blood Count 5.40 x10^6/uL (4.30-5.70) Hemoglobin 16.2 g/dL (13.0-17.5) Hematocrit 47.2 % (39.0-53.0) Mean Corpuscular Volume 88 fL (79-100) Mean Corpuscular Hemoglobin 30 pg (25-35) Mean Corpuscular Hemoglobin Concent 34 g/dL (31-37) Red Cell Distribution Width 13.2 % (11.5-14.5) Platelet Count 268 x10^3/uL (140-400) Neutrophils (%) (Auto) 83 % (31-73) Lymphocytes (%) (Auto) 9 % (24-48) Monocytes (%) (Auto) 8 % (0-9) Eosinophils (%) (Auto) 1 % (0-3) Basophils (%) (Auto) 0 % (0-3) Neutrophils # (Auto) 12.5 x10^3/uL (1.8-7.7) Lymphocytes # (Auto) 1.3 x10^3/uL (1.0-4.8) Monocytes # (Auto) 1.2 x10^3/uL (0.0-1.1) Eosinophils # (Auto) 0.1 x10^3/uL (0.0-0.7) Basophils # (Auto) 0.1 x10^3/uL (0.0-0.2) Prothrombin Time 13.4 SEC (11.7-14.0) Prothromb Time International Ratio 1.1 (0.8-1.1) Activated Partial Thromboplast Time 29 SEC (24-38) Sodium Level 137 mmol/L (136-145) Potassium Level 3.9 mmol/L (3.5-5.1) Chloride Level 102 mmol/L (98-107) Carbon Dioxide Level 25 mmol/L (21-32) Anion Gap 10 (6-14) Blood Urea Nitrogen 21 mg/dL (8-26) Creatinine 1.5 mg/dL (0.7-1.3) Estimated GFR (Cockcroft-Gault) 47.6 BUN/Creatinine Ratio 14 (6-20) Glucose Level 97 mg/dL (70-99) Calcium Level 8.8 mg/dL (8.5-10.1) Magnesium Level 2.0 mg/dL (1.8-2.4) Total Bilirubin 0.6 mg/dL (0.2-1.0) Aspartate Amino Transf (AST/SGOT) 43 U/L (15-37) Alanine Aminotransferase (ALT/SGPT) 84 U/L (16-63) Alkaline Phosphatase 107 U/L (46-116) Total Protein 7.9 g/dL (6.4-8.2) Albumin 4.0 g/dL (3.4-5.0) Albumin/Globulin Ratio 1.0 (1.0-1.7) Lipase 116 U/L (73-393) Urine Collection Type Void Urine Color Yellow Urine Clarity Clear Urine pH 6.0 (<5.0-8.0) Urine Specific [place] 1.010 (1.000-1.030) Urine Protein Negative mg/dL (NEG-TRACE) Urine Glucose (UA) Negative mg/dL (NEG) Urine Ketones (Stick) Negative mg/dL (NEG) Urine Blood Small (NEG) Urine Nitrite Negative (NEG) Urine Bilirubin Negative (NEG) Urine Urobilinogen Dipstick 0.2 mg/dL (0.2 mg/dL) Urine Leukocyte Esterase Negative (NEG) Urine RBC 1-2 /HPF (0-2) Urine WBC 1-4 /HPF (0-4) Urine Squamous Epithelial Cells Occ /LPF Urine Bacteria 0 /HPF (0-FEW) Urine Hyaline Casts Occasional /HPF Urine Granular Casts Occasional /HPF Laboratory Tests Test 11/23/19 13:16 11/23/19 14:27 White Blood Count 15.2 x10^3/uL (4.0-11.0) Red Blood Count 5.40 x10^6/uL (4.30-5.70) Hemoglobin 16.2 g/dL (13.0-17.5) Hematocrit 47.2 % (39.0-53.0) Mean Corpuscular Volume 88 fL (79-100) Mean Corpuscular Hemoglobin 30 pg (25-35) Mean Corpuscular Hemoglobin Concent 34 g/dL (31-37) Red Cell Distribution Width 13.2 % (11.5-14.5) Platelet Count 268 x10^3/uL (140-400) Neutrophils (%) (Auto) 83 % (31-73) Lymphocytes (%) (Auto) 9 % (24-48) Monocytes (%) (Auto) 8 % (0-9) Eosinophils (%) (Auto) 1 % (0-3) Basophils (%) (Auto) 0 % (0-3) Neutrophils # (Auto) 12.5 x10^3/uL (1.8-7.7) Lymphocytes # (Auto) 1.3 x10^3/uL (1.0-4.8) Monocytes # (Auto) 1.2 x10^3/uL (0.0-1.1) Eosinophils # (Auto) 0.1 x10^3/uL (0.0-0.7) Basophils # (Auto) 0.1 x10^3/uL (0.0-0.2) Prothrombin Time 13.4 SEC (11.7-14.0) Prothromb Time International Ratio 1.1 (0.8-1.1) Activated Partial Thromboplast Time 29 SEC (24-38) Sodium Level 137 mmol/L (136-145) Potassium Level 3.9 mmol/L (3.5-5.1) Chloride Level 102 mmol/L (98-107) Carbon Dioxide Level 25 mmol/L (21-32) Anion Gap 10 (6-14) Blood Urea Nitrogen 21 mg/dL (8-26) Creatinine 1.5 mg/dL (0.7-1.3) Estimated GFR (Cockcroft-Gault) 47.6 BUN/Creatinine Ratio 14 (6-20) Glucose Level 97 mg/dL (70-99) Calcium Level 8.8 mg/dL (8.5-10.1) Magnesium Level 2.0 mg/dL (1.8-2.4) Total Bilirubin 0.6 mg/dL (0.2-1.0) Aspartate Amino Transf (AST/SGOT) 43 U/L (15-37) Alanine Aminotransferase (ALT/SGPT) 84 U/L (16-63) Alkaline Phosphatase 107 U/L (46-116) Total Protein 7.9 g/dL (6.4-8.2) Albumin 4.0 g/dL (3.4-5.0) Albumin/Globulin Ratio 1.0 (1.0-1.7) Lipase 116 U/L (73-393) Urine Collection Type Void Urine Color Yellow Urine Clarity Clear Urine pH 6.0 (<5.0-8.0) Urine Specific [place] 1.010 (1.000-1.030) Urine Protein Negative mg/dL (NEG-TRACE) Urine Glucose (UA) Negative mg/dL (NEG) Urine Ketones (Stick) Negative mg/dL (NEG) Urine Blood Small (NEG) Urine Nitrite Negative (NEG) Urine Bilirubin Negative (NEG) Urine Urobilinogen Dipstick 0.2 mg/dL (0.2 mg/dL) Urine Leukocyte Esterase Negative (NEG) Urine RBC 1-2 /HPF (0-2) Urine WBC 1-4 /HPF (0-4) Urine Squamous Epithelial Cells Occ /LPF Urine Bacteria 0 /HPF (0-FEW) Urine Hyaline Casts Occasional /HPF Urine Granular Casts Occasional /HPF Medications Current Medications Metronidazole 100 ml @ 100 mls/hr Q8HRS IV ; Start 11/23/19 at 22:00; Stop 11/23/19 at 19:02; Status DC Metronidazole 100 ml @ 100 mls/hr 1X ONCE IV Last administered on 11/23/19at 15:39; Start 11/23/19 at 15:30; Stop 11/23/19 at 16:29; Status DC Sodium Chloride 1,000 ml @ 1,000 mls/hr 1X ONCE IV Last administered on 11/23/19at 16:32; Start 11/23/19 at 16:00; Stop 11/23/19 at 16:59; Status DC Ondansetron HCl (Zofran) 4 mg PRN Q8HRS PRN IV NAUSEA/VOMITING; Start 11/23/19 at 16:30; Stop 11/24/19 at 16:29 Morphine Sulfate (Morphine Sulfate) 2 mg PRN Q2HR PRN IV PAIN Last administered on 11/23/19at 21:52; Start 11/23/19 at 16:30; Stop 11/24/19 at 16:29 Metronidazole 100 ml @ 100 mls/hr Q8HRS IV Last administered on 11/24/19at 06:05; Start 11/23/19 at 22:00 Acetaminophen (Tylenol) 650 mg PRN Q4HRS PRN PO PAIN Last administered on 11/24/19at 06:09; Start 11/23/19 at 19:15 Sodium Chloride 1,000 ml @ 100 mls/hr Q10H IV Last administered on 11/24/19at 04:43; Start 11/23/19 at 19:15 Active Scripts Active Reported Ibuprofen 100 Mg Tablet 400 Mg PO PRN Vitals/I & O Vital Sign - Last 24 Hours 11/23/19 11/23/19 11/23/19 11/23/19 13:20 14:57 15:57 16:57 Temp 98.7 98.7 Pulse 70 64 64 64 Resp 16 B/P (MAP) 173/103 (126) 166/86 (112) 169/84 (112) 164/81 (108) Pulse Ox 98 97 97 95 O2 Delivery Room Air Room Air Room Air Room Air 11/23/19 11/23/19 11/23/19 11/23/19 17:57 19:00 20:00 21:52 Temp 98.1 98.1 Pulse 66 72 Resp 16 20 B/P (MAP) 168/87 (114) 155/88 (110) Pulse Ox 96 96 96 O2 Delivery Room Air Room Air Room Air Room Air 11/23/19 11/23/19 11/24/19 11/24/19 22:22 23:00 03:00 07:00 Temp 98.4 98.0 97.9 98.4 98.0 97.9 Pulse 66 61 59 Resp 20 18 18 18 B/P (MAP) 133/87 (102) 133/76 (95) 99/68 (78) Pulse Ox 96 95 95 93 O2 Delivery Room Air Room Air Room Air Room Air 11/24/19 07:54 O2 Delivery Room Air Intake and Output 11/23/19 11/23/19 11/24/19 15:00 23:00 07:00 Intake Total 0 ml 300 ml Balance 0 ml 300 ml Justicifation of Admission Dx: Justifications for Admission: Justification of Admission Dx: N/A ALE VALADEZ MD Nov 24, 2019 09:16
--- NOTE | 2019-11-24 09:51 | PDOC2 ---
GI CONSULT Reason For Consult: abd pain HPI: HPI: 59 y/o male w/ several days of abdominal pain - "excruciating" bloating. Started in epigastrium and moved straight down and then around to right side, also felt some in right flank. Possible precipitating factors include working outside in the heat for several day and eating "a lot" of red meat and pizza with mushrooms. Was concerned he might "have a blockage" so he tried enemas x 2 (though no issues w/ constipation). Feeling better this morning, tolerating clears. Stooled after enemas yesterday, maybe that helped. Some acid reflux lately - Tums and Rolaids aren't really helping. Has gained weight since the pandemic started - about 15 pounds. Daily ibuprofen for chronic neck and back pain. Denies dysphagia, n/v, diarrhea, hematochezia, and melena. No previous EGD. Thinks last colonoscopy ~5-6 years ago - checked with office and colonoscopy w/ Dr. Heart in 2008 w/ hyperplastic polyps and internal and external hemorrhoids. No GB, liver, pancreas, or PUD history. PMH: PMH: umbilical hernia repair w/ mesh (Dr. Hollins), right CTR, right thumb surgery, LUE tendon repair FH: Family History: Cancer (breast, lung) Social History: Smoke: No ALCOHOL: none ROS: GEN: Denies fevers, chills, sweats HEENT: Denies blurred vision, sore throat CV: Denies chest pain RESP: Denies shortness of air, cough GI: Per HPI : Denies hematuria, dysuria ENDO: +weight gain NEURO: Denies confusion, dizziness MSK: +chronic back and neck pain SKIN: Denies jaundice, pruritus Vitals: Vitals: Vital Signs Date Time Temp Pulse Resp B/P (MAP) Pulse Ox O2 Delivery O2 Flow Rate FiO2 11/24/19 07:54 Room Air 11/24/19 07:00 97.9 59 18 99/68 (78) 93 97.9 Labs: Labs: Laboratory Tests Test 11/23/19 13:16 11/23/19 14:27 White Blood Count 15.2 x10^3/uL (4.0-11.0) Red Blood Count 5.40 x10^6/uL (4.30-5.70) Hemoglobin 16.2 g/dL (13.0-17.5) Hematocrit 47.2 % (39.0-53.0) Mean Corpuscular Volume 88 fL (79-100) Mean Corpuscular Hemoglobin 30 pg (25-35) Mean Corpuscular Hemoglobin Concent 34 g/dL (31-37) Red Cell Distribution Width 13.2 % (11.5-14.5) Platelet Count 268 x10^3/uL (140-400) Neutrophils (%) (Auto) 83 % (31-73) Lymphocytes (%) (Auto) 9 % (24-48) Monocytes (%) (Auto) 8 % (0-9) Eosinophils (%) (Auto) 1 % (0-3) Basophils (%) (Auto) 0 % (0-3) Neutrophils # (Auto) 12.5 x10^3/uL (1.8-7.7) Lymphocytes # (Auto) 1.3 x10^3/uL (1.0-4.8) Monocytes # (Auto) 1.2 x10^3/uL (0.0-1.1) Eosinophils # (Auto) 0.1 x10^3/uL (0.0-0.7) Basophils # (Auto) 0.1 x10^3/uL (0.0-0.2) Prothrombin Time 13.4 SEC (11.7-14.0) Prothromb Time International Ratio 1.1 (0.8-1.1) Activated Partial Thromboplast Time 29 SEC (24-38) Sodium Level 137 mmol/L (136-145) Potassium Level 3.9 mmol/L (3.5-5.1) Chloride Level 102 mmol/L (98-107) Carbon Dioxide Level 25 mmol/L (21-32) Anion Gap 10 (6-14) Blood Urea Nitrogen 21 mg/dL (8-26) Creatinine 1.5 mg/dL (0.7-1.3) Estimated GFR (Cockcroft-Gault) 47.6 BUN/Creatinine Ratio 14 (6-20) Glucose Level 97 mg/dL (70-99) Calcium Level 8.8 mg/dL (8.5-10.1) Magnesium Level 2.0 mg/dL (1.8-2.4) Total Bilirubin 0.6 mg/dL (0.2-1.0) Aspartate Amino Transf (AST/SGOT) 43 U/L (15-37) Alanine Aminotransferase (ALT/SGPT) 84 U/L (16-63) Alkaline Phosphatase 107 U/L (46-116) Total Protein 7.9 g/dL (6.4-8.2) Albumin 4.0 g/dL (3.4-5.0) Albumin/Globulin Ratio 1.0 (1.0-1.7) Lipase 116 U/L (73-393) Urine Collection Type Void Urine Color Yellow Urine Clarity Clear Urine pH 6.0 (<5.0-8.0) Urine Specific [place] 1.010 (1.000-1.030) Urine Protein Negative mg/dL (NEG-TRACE) Urine Glucose (UA) Negative mg/dL (NEG) Urine Ketones (Stick) Negative mg/dL (NEG) Urine Blood Small (NEG) Urine Nitrite Negative (NEG) Urine Bilirubin Negative (NEG) Urine Urobilinogen Dipstick 0.2 mg/dL (0.2 mg/dL) Urine Leukocyte Esterase Negative (NEG) Urine RBC 1-2 /HPF (0-2) Urine WBC 1-4 /HPF (0-4) Urine Squamous Epithelial Cells Occ /LPF Urine Bacteria 0 /HPF (0-FEW) Urine Hyaline Casts Occasional /HPF Urine Granular Casts Occasional /HPF Allergies: Coded Allergies: No Known Drug Allergies (Unverified , 02/01/14) Medications: Current Medications Medications (Trade) Dose Ordered Sig/Ean Route PRN Reason Start Time Stop Time Status Last Admin Dose Admin Metronidazole 100 ml @ 100 mls/hr 1X ONCE IV 11/23/19 15:30 11/23/19 16:29 DC 11/23/19 15:39 Sodium Chloride 1,000 ml @ 1,000 mls/hr 1X ONCE IV 11/23/19 16:00 11/23/19 16:59 DC 11/23/19 16:32 Morphine Sulfate (Morphine Sulfate) 2 mg PRN Q2HR PRN IV PAIN 11/23/19 16:30 11/24/19 16:29 11/23/19 21:52 Metronidazole 100 ml @ 100 mls/hr Q8HRS IV 11/23/19 22:00 11/24/19 06:05 Acetaminophen (Tylenol) 650 mg PRN Q4HRS PRN PO PAIN 11/23/19 19:15 11/24/19 06:09 Sodium Chloride 1,000 ml @ 100 mls/hr Q10H IV 11/23/19 19:15 11/24/19 04:43 Imaging: Imaging: CT A/P IMPRESSION: 1. 5 mm calculus is identified at the right ureteropelvic junction resulting in mild right hydronephrosis. There is an additional 3 mm nonobstructing calculus in the interpolar right kidney. 2. Mild hazy attenuation within the root of small bowel mesentery borderline enlarged lymph nodes suggestive of mesenteric adenitis. 3-6 month follow-up CT abdomen/pelvis is recommended for further evaluation. 3. Hepatic steatosis. Ill-defined hypoattenuating lesion in segment IV measures 13 mm and is indeterminate. Further catheterization with abdominal MRI with and without contrast is recommended. 4. Fluid-filled left colon, sigmoid colon and rectum. Correlate with history of diarrhea. PE: GEN: NAD HEENT: Atraumatic, PERRL LUNGS: CTAB HEART: RRR ABD: NABS, soft, non-specific discomfort - mostly periumbilical EXTREMITY: No edema SKIN: No rashes, no jaundice NEURO/PSYCH: A & O 3 A/P: A/P: Abd pain/bloating, nausea, ?change in bowel habits Leukocytosis, ?JEANNIE Abnormal CT - 5 mm calculus at right ureteropelvic junction, mild right hydronephrosis, 3 mm nonobstructing calculus in the interpolar right kidney, possible mesenteric adenitis Acid reflux CRC screen - ?last in 2008 Hepatic steatosis, indeterminate liver lesion NSAID use -- D/w Dr. Heart - consider EGD and colonoscopy tomorrow. Will d/w GI lab, pt (who is now in the shower), etc. and follow-up. 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 He does request a COVID-19 test and would need this before any endoscopy - will order. Can pursue outpt MRI re: liver lesion. ?need for IV Flagyl UPDATE Returned to pt's room twice today - significant time spent, all questions answered to pt and 's satisfaction. They had concern for "stomach infec tion," worried about possible malignancy, had questions about what procedures show. They would like to proceed w/ EGD and colonoscopy - COVID swab and prep ordered this morning. He is still tolerating clears w/ some belching, still less pain. Now also reports he thinks he had a colonoscopy w/ Dr. Cha in 2016 - "he did some banding." does not recall this. D/w nurse and social work - discussion per hospitalist re: transfer for urology eval earlier today but not now. Reviewed w/ Dr. Heart - proceed w/ prep. RODRI RUIZ Nov 24, 2019 09:51
[2019-11-24 10:20] LABS: BASO % 1 % (0-3); EOS # 0.2 x10^3/uL (0.0-0.7); EOS % 3 % (0-3); HEMATOCRIT 44.6 % (39.0-53.0); HEMOGLOBIN 15.5 g/dL (13.0-17.5); LYMPH # 1.6 x10^3/uL (1.0-4.8); LYMPH % 17 % (24-48); MEAN CORPUSCULAR HEMOGLOBIN 31 pg (25-35); MEAN CORPUSCULAR HGB CONC 35 g/dL (31-37); MEAN CORPUSCULAR VOLUME 88 fL (79-100); MONO # 0.8 x10^3/uL (0.0-1.1); MONO % 8 % (0-9); NEUT # 6.5 x10^3/uL (1.8-7.7); NEUT % 71 % (31-73); PLATELET COUNT 273 x10^3/uL (140-400); RED BLOOD COUNT 5.05 x10^6/uL (4.30-5.70); RED CELL DISTRIBUTION WIDTH 13.3 % (11.5-14.5); WHITE BLOOD COUNT 9.1 x10^3/uL (4.0-11.0)
[2019-11-24 10:44] LABS: CALCIUM 8.4 mg/dL (8.5-10.1); CREATININE 1.3 mg/dL (0.7-1.3); GFR 56.1; POTASSIUM 3.9 mmol/L (3.5-5.1)
[2019-11-24] MEDS: PANTOPRAZOLE IV PUSH 40 MG VIAL. IVP SCH (10:47)
[2019-11-24 11:00] VITALS: BP 139/91
[2019-11-24] MEDS ORDERED: BISACODYL 5 MG TABLET.DR. PO ONE (11:00)
[2019-11-24] MEDS ORDERED: MAGNESIUM CITRATE 296 ML SOLUTION. PO ONE (11:00)
--- NOTE | 2019-11-24 11:02 | NUR ---
Obtained covid swab and walked to the lab.
[2019-11-24] MEDS ORDERED: POLYETHYLENE GLYCOL 3350 BTL 238 GM POWDER PO ONE (13:00)
[2019-11-24 14:59] VITALS: BP 146/90
[2019-11-24 19:00] VITALS: BP 157/95
[2019-11-24] MEDS ORDERED: ONDANSETRON PF 4 MG/2 ML VIAL. IVP PRN (22:30)
[2019-11-24 23:00] VITALS: BP 139/86
[2019-11-25] MEDS: IV NORMAL SALINE 1000ML BAG 1,000 ML IV SCH ×2 (01:17→22:00)
[2019-11-25 03:00] VITALS: BP 132/71
[2019-11-25] MEDS: PANTOPRAZOLE IV PUSH 40 MG VIAL. IVP SCH (05:28)
[2019-11-25 07:00] VITALS: BP 155/85
[2019-11-25] MEDS ORDERED: LIDOCAINE 1% PF 2 ML VIAL. ID PRN (07:00)
[2019-11-25] MEDS ORDERED: PROCHLORPERAZINE 10 MG/2 ML VIAL. IV PRN (07:00)
[2019-11-25] MEDS ORDERED: IV RINGERS,LACTATED 1000ML 1,000 ML IV SCH (07:00)
--- NOTE | 2019-11-25 10:17 | NUR ---
To out[patient for EGD/Colon per w/c, advised to give spouses phone to staff for results
[2019-11-25] MEDS ORDERED: LIDOCAINE 2% PF 5 ML VIAL. ONE ×2 (10:25→10:52)
[2019-11-25] MEDS ORDERED: PROPOFOL 10 MG/ML (20ML) VIAL. IV ONE ×2 (10:25→10:52)
--- NOTE | 2019-11-25 10:29 | NUR ---
SS following up with discharge planning. SS reviewed pt chart and discussed with pt RN. Possible transfer to or [facility] for Urology. SS discussed with Dr. Boyd. Pt having EGD and colonoscopy today. Dr. Boyd reported that he would order KUB as well and pending results of procedures he will notify SS if transfer needs to be requested. Pt's RN notified. SS will continue to follow for discharge planning.
--- NOTE | 2019-11-25 11:02 | PDOC ---
PROGRESS NOTES History of Present Illness History of Present Illness impression ACUTE ABDOMINAL PAIN, RLQ Leukocytosis enteritis in 59 yr old male with constipation 5 mm calculus is identified at the right ureteropelvic junction resulting in mild right hydronephrosis. There is an additional 3 mm nonobstructing calculus in the interpolar right kidney. Hepatic steatosis. Ill-defined hypoattenuating lesion in segment IV measures 13 mm and is indeterminate. Further catheterization with abdominal MRI with and without contrast is recommended. Plan IV antibiotics IV fluids NPO Consult GI Home meds DVT prophylaxis Full code urology consult may be indicated D/W CASE MGT TO [facility] INDICATED KUB, RENAL SONO TODAY 11/24, EGD as well d/w RN Vitals Vitals Vital Signs Date Time Temp Pulse Resp B/P (MAP) Pulse Ox O2 Delivery O2 Flow Rate FiO2 11/25/19 10:25 97 60 18 95 97.0 11/25/19 10:25 Room Air 11/25/19 07:00 155/85 (108) Physical Exam Physical Exam HEENT: Normal cephalic, atraumatic, external auditory canals are patent EYES: Extraocular muscles are intact, pupil are equally round and reactive to light and accommodation MUSCULOSKELETAL: Well developed , well nourished, good range of motion ENDOCRINE: No thyromegaly was palpated LYMPHATICS: No cervical chain or axillary nodes were noted HEMATOPOIETIC: No bruising NECK: Supple, no JVD, no thyromegaly was noted LUNGS: Clear to auscultation in all lung johnson without rhonchi or wheezing HEART: RRR, S!, S2 present. Peripheral pulses intact, no obvious murmurs noted ABDOMEN: Soft, nontender. Positive bowel sounds, no organomegaly, normal bowel sounds MILD RLQ TENDERNESS NO REBOUND EXTREMITIES: Without clubbing, cyanosis, or edema. Pedal pulses intact. Negative Homans sign NEUROLOGIC: Normal speech and tone. A&O x 3, moves all extremities, no obvious focal deficits PSYCHIATRIC: Normal affect, normal mood. Stable SKIN: No ulcerations or rashes, good skin turgor, no jaundice VASCULAR: Good capillary refill, neurovascular bundle appears to be intact General: Alert, Oriented X3, Cooperative, No acute distress Heart: Regular rate, Normal S1, Normal S2 Abdomen: Normal bowel sounds, Soft Extremities: No cyanosis Skin: No rashes Labs LABS PROCEDURE NOTE PROCEDURE Procedure EGD and colonoscopy bloating , abd pain anesthesia with propofol Findings E- normal but mild esophagitis at GE junction G- gastritis D- normal (bx) Colonoscopy 4 mm polyp in transverse colon removed (bx), internal hemorrhoids- o/w normal colon and TI KVNG RODRIGUEZ MD Assessment and Plan Assessmemt and Plan Problems Medical Problems: (1) Gastroenteritis Status: Acute (2) Leukocytosis Status: Acute Comment Review of Relevant I have reviewed the following items colleen (where applicable) has been applied. Labs Laboratory Tests Test 11/23/19 13:16 11/23/19 14:27 11/24/19 10:00 11/24/19 10:50 White Blood Count 15.2 x10^3/uL (4.0-11.0) 9.1 x10^3/uL (4.0-11.0) Red Blood Count 5.40 x10^6/uL (4.30-5.70) 5.05 x10^6/uL (4.30-5.70) Hemoglobin 16.2 g/dL (13.0-17.5) 15.5 g/dL (13.0-17.5) Hematocrit 47.2 % (39.0-53.0) 44.6 % (39.0-53.0) Mean Corpuscular Volume 88 fL (79-100) 88 fL (79-100) Mean Corpuscular Hemoglobin 30 pg (25-35) 31 pg (25-35) Mean Corpuscular Hemoglobin Concent 34 g/dL (31-37) 35 g/dL (31-37) Red Cell Distribution Width 13.2 % (11.5-14.5) 13.3 % (11.5-14.5) Platelet Count 268 x10^3/uL (140-400) 273 x10^3/uL (140-400) Neutrophils (%) (Auto) 83 % (31-73) 71 % (31-73) Lymphocytes (%) (Auto) 9 % (24-48) 17 % (24-48) Monocytes (%) (Auto) 8 % (0-9) 8 % (0-9) Eosinophils (%) (Auto) 1 % (0-3) 3 % (0-3) Basophils (%) (Auto) 0 % (0-3) 1 % (0-3) Neutrophils # (Auto) 12.5 x10^3/uL (1.8-7.7) 6.5 x10^3/uL (1.8-7.7) Lymphocytes # (Auto) 1.3 x10^3/uL (1.0-4.8) 1.6 x10^3/uL (1.0-4.8) Monocytes # (Auto) 1.2 x10^3/uL (0.0-1.1) 0.8 x10^3/uL (0.0-1.1) Eosinophils # (Auto) 0.1 x10^3/uL (0.0-0.7) 0.2 x10^3/uL (0.0-0.7) Basophils # (Auto) 0.1 x10^3/uL (0.0-0.2) 0.0 x10^3/uL (0.0-0.2) Prothrombin Time 13.4 SEC (11.7-14.0) Prothromb Time International Ratio 1.1 (0.8-1.1) Activated Partial Thromboplast Time 29 SEC (24-38) Sodium Level 137 mmol/L (136-145) 139 mmol/L (136-145) Potassium Level 3.9 mmol/L (3.5-5.1) 3.9 mmol/L (3.5-5.1) Chloride Level 102 mmol/L (98-107) 105 mmol/L (98-107) Carbon Dioxide Level 25 mmol/L (21-32) 27 mmol/L (21-32) Anion Gap 10 (6-14) 7 (6-14) Blood Urea Nitrogen 21 mg/dL (8-26) 15 mg/dL (8-26) Creatinine 1.5 mg/dL (0.7-1.3) 1.3 mg/dL (0.7-1.3) Estimated GFR (Cockcroft-Gault) 47.6 56.1 BUN/Creatinine Ratio 14 (6-20) Glucose Level 97 mg/dL (70-99) 91 mg/dL (70-99) Calcium Level 8.8 mg/dL (8.5-10.1) 8.4 mg/dL (8.5-10.1) Magnesium Level 2.0 mg/dL (1.8-2.4) Total Bilirubin 0.6 mg/dL (0.2-1.0) Aspartate Amino Transf (AST/SGOT) 43 U/L (15-37) Alanine Aminotransferase (ALT/SGPT) 84 U/L (16-63) Alkaline Phosphatase 107 U/L (46-116) Total Protein 7.9 g/dL (6.4-8.2) Albumin 4.0 g/dL (3.4-5.0) Albumin/Globulin Ratio 1.0 (1.0-1.7) Lipase 116 U/L (73-393) Urine Collection Type Void Urine Color Yellow Urine Clarity Clear Urine pH 6.0 (<5.0-8.0) Urine Specific Mill[place] 1.010 (1.000-1.030) Urine Protein Negative mg/dL (NEG-TRACE) Urine Glucose (UA) Negative mg/dL (NEG) Urine Ketones (Stick) Negative mg/dL (NEG) Urine Blood Small (NEG) Urine Nitrite Negative (NEG) Urine Bilirubin Negative (NEG) Urine Urobilinogen Dipstick 0.2 mg/dL (0.2 mg/dL) Urine Leukocyte Esterase Negative (NEG) Urine RBC 1-2 /HPF (0-2) Urine WBC 1-4 /HPF (0-4) Urine Squamous Epithelial Cells Occ /LPF Urine Bacteria 0 /HPF (0-FEW) Urine Hyaline Casts Occasional /HPF Urine Granular Casts Occasional /HPF Coronavirus (COVID-19)(PCR) Negative (NEGATIVE) Medications Current Medications Metronidazole 100 ml @ 100 mls/hr Q8HRS IV ; Start 11/23/19 at 22:00; Stop 11/23/19 at 19:02; Status DC Metronidazole 100 ml @ 100 mls/hr 1X ONCE IV Last administered on 11/23/19at 15:39; Start 11/23/19 at 15:30; Stop 11/23/19 at 16:29; Status DC Sodium Chloride 1,000 ml @ 1,000 mls/hr 1X ONCE IV Last administered on 11/23/19at 16:32; Start 11/23/19 at 16:00; Stop 11/23/19 at 16:59; Status DC Ondansetron HCl (Zofran) 4 mg PRN Q8HRS PRN IV NAUSEA/VOMITING; Start 11/23/19 at 16:30; Stop 11/24/19 at 16:29; Status DC Morphine Sulfate (Morphine Sulfate) 2 mg PRN Q2HR PRN IV PAIN Last administered on 11/23/19at 21:52; Start 11/23/19 at 16:30; Stop 11/24/19 at 16:29; Status DC Metronidazole 100 ml @ 100 mls/hr Q8HRS IV Last administered on 11/25/19at 05:28; Start 11/23/19 at 22:00 Acetaminophen (Tylenol) 650 mg PRN Q4HRS PRN PO PAIN Last administered on 11/24/19 14:41; Start 11/23/19 at 19:15 Sodium Chloride 1,000 ml @ 100 mls/hr Q10H IV Last administered on 11/25/19at 01:17; Start 11/23/19 at 19:15 Pantoprazole Sodium (PROTONIX VIAL for IV PUSH) 40 mg DAILYAC IVP Last administered on 11/25/19at 05:28; Start 11/24/19 at 10:30 Magnesium Citrate (Citroma) 296 ml 1X ONCE PO Last administered on 11/24/19 14:38; Start 11/24/19 at 11:00; Stop 11/24/19 at 11:01; Status DC Polyethylene Glycol (miraLAX Powder BULK BOTTLE) 238 gm 1X ONCE PO Last administered on 11/24/19at 14:38; Start 11/24/19 at 13:00; Stop 11/24/19 at 13:01; Status DC Bisacodyl (Dulcolax Tab) 10 mg 1X ONCE PO Last administered on 11/24/19at 14:36; Start 11/24/19 at 11:00; Stop 11/24/19 at 11:01; Status DC Ringer's Solution 1,000 ml @ 30 mls/hr Q24H IV Last administered on 11/25/19at 1 0:29; Start 11/25/19 at 07:00; Stop 11/25/19 at 18:59 Lidocaine HCl (Xylocaine-Mpf 1% 2ml Vial) 2 ml PRN 1X PRN ID PRIOR TO IV START; Start 11/25/19 at 07:00; Stop 11/26/19 at 06:59 Prochlorperazine Edisylate (Compazine) 5 mg PACU PRN PRN IV NAUSEA, MRX1; Start 11/25/19 at 07:00; Stop 11/26/19 at 06:59 Morphine Sulfate (Morphine Sulfate) 2 mg PRN Q2HR PRN IV PAIN; Start 11/24/19 at 22:30 Ondansetron HCl (Zofran) 4 mg PRN Q6HRS PRN IVP NAUSEA/VOMITING; Start 11/24/19 at 22:30 Propofol (Diprivan) 200 mg STK-MED ONCE IV ; Start 11/25/19 at 10:25; Stop 11/25/19 at 10:25; Status DC Lidocaine HCl (Lidocaine Pf 2% Vial) 5 ml STK-MED ONCE .ROUTE ; Start 11/25/19 at 10:25; Stop 11/25/19 at 10:26; Status DC Propofol (Diprivan) 200 mg STK-MED ONCE IV ; Start 11/25/19 at 10:52; Stop 11/25/19 at 10:52; Status DC Lidocaine HCl (Lidocaine Pf 2% Vial) 5 ml STK-MED ONCE .ROUTE ; Start 11/25/19 at 10:52; Stop 11/25/19 at 10:52; Status DC Active Scripts Active Reported Ibuprofen 100 Mg Tablet 400 Mg PO PRN Vitals/I & O Vital Sign - Last 24 Hours 11/24/19 11/24/19 11/24/19 11/24/19 14:59 19:00 20:00 23:00 Temp 98.4 97.9 98.3 98.4 97.9 98.3 Pulse 62 61 59 Resp 18 18 18 B/P (MAP) 146/90 (108) 157/95 (115) 139/86 (103) Pulse Ox 95 96 96 O2 Delivery Room Air Room Air Room Air Room Air 11/25/19 11/25/19 11/25/19 11/25/19 03:00 07:00 10:25 10:25 Temp 97.7 98.4 97 97.7 98.4 97.0 Pulse 65 55 60 Resp 18 18 18 B/P (MAP) 132/71 (91) 155/85 (108) Pulse Ox 97 94 95 O2 Delivery Room Air Room Air Room Air Intake and Output 11/24/19 11/24/19 11/25/19 15:00 23:00 07:00 Intake Total 1050 ml Balance 1050 ml Justicifation of Admission Dx: Justifications for Admission: Justification of Admission Dx: N/A ALE VALADEZ MD Nov 25, 2019 11:02
--- NOTE | 2019-11-25 11:45 | PDOC4 ---
PROCEDURE Procedure EGD and colonoscopy bloating , abd pain anesthesia with propofol Findings E- normal but mild esophagitis at GE junction G- gastritis D- normal (bx) Colonoscopy 4 mm polyp in transverse colon removed (bx), internal hemorrhoids- o/w normal colon and TI KVNG RODRIGUEZ MD Nov 25, 2019 11:45
[2019-11-25] MEDS: MORPHINE SULFATE 2 MG/ML VIAL. IV PRN ×2 (14:21→19:57)
[2019-11-25 15:00] VITALS: BP 143/90
--- NOTE | 2019-11-25 16:06 | RAD ---
EXAM: 1. RENAL/RETROPERITONAL ULTRASOUND. 2. ABDOMEN ONE VIEW. HISTORY: Hydronephrosis, ureteral calculus. COMPARISON: 11/23/2019. FINDINGS: Ultrasound of the kidneys, bladder and retroperitoneum was performed. The right kidney measures 11.3 cm. Cortical thickness and echogenicity are preserved. There is no hydronephrosis. There is an extrarenal pelvis. The left kidney measures 10.1 cm. Cortical thickness and echogenicity are preserved. There is no hydronephrosis. Images of the bladder reveal no gross abnormality. A left ureteral jets are visualized. The abdominal aorta and inferior vena cava are grossly patent and normal in caliber. Diffuse hepatic steatosis is noted. A frontal view of the abdomen is obtained. A 4 mm calculus is again noted at the right ureteropelvic junction, as better seen on CT. An additional small right renal calculus on prior CT is not well appreciated by radiographs. There is gas distally. There are no distended small bowel loops. IMPRESSION: 1. 4 mm right ureteropelvic junction calculus is noted on prior CT. 2. No hydronephrosis. 3. Diffuse hepatic steatosis. Electronically signed by: Tam Conteh MD (11/25/2019 4:02 PM) [id number]
--- NOTE | 2019-11-25 18:37 | NUR ---
Urine strained no stones visible
--- NOTE | 2019-11-25 18:44 | NUR ---
Just spoke with Dr. Boyd possible transfer to [facility] tonight or tomorrow, notified pt & spouse
[2019-11-25 19:00] VITALS: BP 135/81
--- NOTE | 2019-11-25 20:45 | NUR ---
talked to Albertina THURSTON from [facility] gave report about pt transfer
[2019-11-25] MEDS ORDERED: LACTOBACILLUS RHAMNOSUS GG 1 CAPSULE. PO SCH (21:00)
--- NOTE | 2019-11-25 21:40 | NUR ---
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
--- NOTE | 2019-11-26 09:36 | PDOC3 ---
Discharge Summary Date of Admission: Nov 23, 2019 Date of Discharge: Nov 25, 2019 Follow-Up: 1-2 days Admitting Diagnosis comment: TRANSFER TO [facility] ACUTE ABDOMINAL PAIN, RLQ Leukocytosis enteritis in 59 yr old male with constipation 5 mm calculus is identified at the right ureteropelvic junction resulting in mild right hydronephrosis. There is an additional 3 mm nonobstructing calculus in the interpolar right kidney. Hepatic steatosis. Ill-defined hypoattenuating lesion in segment IV measures 13 mm and is indeterminate. Further catheterization with abdominal MRI with and without contrast is recommended. Plan IV antibiotics IV fluids NPO Consult GI Home meds DVT prophylaxis Full code urology consult may be indicated D/W CASE MGT TO [facility] INDICATED KUB, RENAL SONO TODAY 11/24, EGD as well d/w [employer] TO [facility] Vitals Vitals Vital Signs Date Time Temp Pulse Resp B/P (MAP) Pulse Ox O2 Delivery O2 Flow Rate FiO2 11/25/19 10:25 97 60 18 95 97.0 11/25/19 10:25 Room Air 11/25/19 07:00 155/85 (108) Physical Exam Physical Exam HEENT: Normal cephalic, atraumatic, external auditory canals are patent EYES: Extraocular muscles are intact, pupil are equally round and reactive to light and accommodation MUSCULOSKELETAL: Well developed , well nourished, good range of motion ENDOCRINE: No thyromegaly was palpated LYMPHATICS: No cervical chain or axillary nodes were noted HEMATOPOIETIC: No bruising NECK: Supple, no JVD, no thyromegaly was noted LUNGS: Clear to auscultation in all lung johnson without rhonchi or wheezing HEART: RRR, S!, S2 present. Peripheral pulses intact, no obvious murmurs noted ABDOMEN: Soft, nontender. Positive bowel sounds, no organomegaly, normal bowel sounds MILD RLQ TENDERNESS NO REBOUND EXTREMITIES: Without clubbing, cyanosis, or edema. Pedal pulses intact. Negative Homans sign NEUROLOGIC: Normal speech and tone. A&O x 3, moves all extremities, no obvious focal deficits PSYCHIATRIC: Normal affect, normal mood. Stable SKIN: No ulcerations or rashes, good skin turgor, no jaundice VASCULAR: Good capillary refill, neurovascular bundle appears to be intact General: Alert, Oriented X3, Cooperative, No acute distress Heart: Regular rate, Normal S1, Normal S2 Abdomen: Normal bowel sounds, Soft Extremities: No cyanosis Skin: No rashes Labs LABS PROCEDURE NOTE PROCEDURE Procedure EGD and colonoscopy bloating , abd pain anesthesia with propofol Findings E- normal but mild esophagitis at GE junction G- gastritis D- normal (bx) Colonoscopy 4 mm polyp in transverse colon removed (bx), internal hemorrhoids- o/w normal colon and TI KVNG RODRIGUEZ MD Assessment and Plan Assessmemt and Plan Problems Medical Problems: (1) Gastroenteritis Status: Acute (2) Leukocytosis Status: Acute FINAL DIAGNOSIS Problems Medical Problems: (1) Gastroenteritis Status: Acute (2) Leukocytosis Status: Acute Brief Hospital Course Mr. Sewell is a 59 old [sex] who presented with [ ABD PAIN ] CONDITION AT DISCHARGE: Comment (TRANSFER TO [facility]) Discharge Medications Current Medications Metronidazole 100 ml @ 100 mls/hr Q8HRS IV ; Start 11/23/19 at 22:00; Stop 11/23/19 at 19:02; Status DC Metronidazole 100 ml @ 100 mls/hr 1X ONCE IV Last administered on 11/23/19at 15:39; Start 11/23/19 at 15:30; Stop 11/23/19 at 16:29; Status DC Sodium Chloride 1,000 ml @ 1,000 mls/hr 1X ONCE IV Last administered on 0at 16:32; Start 11/23/19 at 16:00; Stop 11/23/19 at 16:59; Status DC Ondansetron HCl (Zofran) 4 mg PRN Q8HRS PRN IV NAUSEA/VOMITING; Start 11/23/19 at 16:30; Stop 11/24/19 at 16:29; Status DC Morphine Sulfate (Morphine Sulfate) 2 mg PRN Q2HR PRN IV PAIN Last administered on 11/23/19at 21:52; Start 11/23/19 at 16:30; Stop 11/24/19 at 16:29; Status DC Metronidazole 100 ml @ 100 mls/hr Q8HRS IV Last administered on 11/25/19at 13:20; Start 11/23/19 at 22:00; Stop 11/26/19 at 01:52; Status DC Acetaminophen (Tylenol) 650 mg PRN Q4HRS PRN PO PAIN Last administered on 11/24/19at 14:41; Start 11/23/19 at 19:15; Stop 11/26/19 at 01:52; Status DC Sodium Chloride 1,000 ml @ 100 mls/hr Q10H IV Last administered on 11/25/19at 01:17; Start 11/23/19 at 19:15; Stop 11/26/19 at 01:52; Status DC Pantoprazole Sodium (PROTONIX VIAL for IV PUSH) 40 mg DAILYAC IVP Last administered on 11/25/19at 05:28; Start 11/24/19 at 10:30; Stop 11/26/19 at 01:52; Status DC Magnesium Citrate (Citroma) 296 ml 1X ONCE PO Last administered on 11/24/19at 14:38; Start 11/24/19 at 11:00; Stop 11/24/19 at 11:01; Status DC Polyethylene Glycol (miraLAX Powder BULK BOTTLE) 238 gm 1X ONCE PO Last administered on 11/24/19at 14:38; Start 11/24/19 at 13:00; Stop 11/24/19 at 13:01; Status DC Bisacodyl (Dulcolax Tab) 10 mg 1X ONCE PO Last administered on 11/24/19at 14:36; Start 11/24/19 at 11:00; Stop 11/24/19 at 11:01; Status DC Ringer's Solution 1,000 ml @ 30 mls/hr Q24H IV Last administered on 11/25/19at 10:29; Start 11/25/19 at 07:00; Stop 11/25/19 at 18:59; Status DC Lidocaine HCl (Xylocaine-Mpf 1% 2ml Vial) 2 ml PRN 1X PRN ID PRIOR TO IV START; Start 11/25/19 at 07:00; Stop 11/26/19 at 01:52; Status DC Prochlorperazine Edisylate (Compazine) 5 mg PACU PRN PRN IV NAUSEA, MRX1; Start 11/25/19 at 07:00; Stop 11/26/19 at 01:52; Status DC Morphine Sulfate (Morphine Sulfate) 2 mg PRN Q2HR PRN IV PAIN Last administered on 11/25/19at 19:57; Start 11/24/19 at 22:30; Stop 11/26/19 at 01:52; Status DC Ondansetron HCl (Zofran) 4 mg PRN Q6HRS PRN IVP NAUSEA/VOMITING; Start 11/24/19 at 22:30; Stop 11/26/19 at 01:52; Status DC Propofol (Diprivan) 200 mg STK-MED ONCE IV ; Start 11/25/19 at 10:25; Stop 0 at 10:25; Status DC Lidocaine HCl (Lidocaine Pf 2% Vial) 5 ml STK-MED ONCE .ROUTE ; Start 11/25/19 at 10:25; Stop 11/25/19 at 10:26; Status DC Propofol (Diprivan) 200 mg STK-MED ONCE IV ; Start 11/25/19 at 10:52; Stop 11/25/19 at 10:52; Status DC Lidocaine HCl (Lidocaine Pf 2% Vial) 5 ml STK-MED ONCE .ROUTE ; Start 11/25/19 at 10:52; Stop 11/25/19 at 10:52; Status DC Lactobacillus Rhamnosus (Culturelle) 1 cap BID PO Last administered on 11/25/19at 21:35; Start 11/25/19 at 21:00; Stop 11/26/19 at 01:52; Status DC Active Scripts Active No Active Prescriptions or Reported Medications Vital Signs Vital Signs Date Time Temp Pulse Resp B/P (MAP) Pulse Ox O2 Delivery O2 Flow Rate FiO2 11/25/19 20:00 Room Air 11/25/19 19:57 20 95 11/25/19 19:00 98.7 60 135/81 (99) 98.7 Labs Laboratory Tests Test 11/24/19 10:00 11/24/19 10:50 White Blood Count 9.1 x10^3/uL (4.0-11.0) Red Blood Count 5.05 x10^6/uL (4.30-5.70) Hemoglobin 15.5 g/dL (13.0-17.5) Hematocrit 44.6 % (39.0-53.0) Mean Corpuscular Volume 88 fL (79-100) Mean Corpuscular Hemoglobin 31 pg (25-35) Mean Corpuscular Hemoglobin Concent 35 g/dL (31-37) Red Cell Distribution Width 13.3 % (11.5-14.5) Platelet Count 273 x10^3/uL (140-400) Neutrophils (%) (Auto) 71 % (31-73) Lymphocytes (%) (Auto) 17 % (24-48) Monocytes (%) (Auto) 8 % (0-9) Eosinophils (%) (Auto) 3 % (0-3) Basophils (%) (Auto) 1 % (0-3) Neutrophils # (Auto) 6.5 x10^3/uL (1.8-7.7) Lymphocytes # (Auto) 1.6 x10^3/uL (1.0-4.8) Monocytes # (Auto) 0.8 x10^3/uL (0.0-1.1) Eosinophils # (Auto) 0.2 x10^3/uL (0.0-0.7) Basophils # (Auto) 0.0 x10^3/uL (0.0-0.2) Sodium Level 139 mmol/L (136-145) Potassium Level 3.9 mmol/L (3.5-5.1) Chloride Level 105 mmol/L (98-107) Carbon Dioxide Level 27 mmol/L (21-32) Anion Gap 7 (6-14) Blood Urea Nitrogen 15 mg/dL (8-26) Creatinine 1.3 mg/dL (0.7-1.3) Estimated GFR (Cockcroft-Gault) 56.1 Glucose Level 91 mg/dL (70-99) Calcium Level 8.4 mg/dL (8.5-10.1) Coronavirus (COVID-19)(PCR) Negative (NEGATIVE) Allergies Allergies Coded Allergies Type Severity Reaction Last Updated Verified No Known Drug Allergies 11/25/19 No Disposition/Orders: Other (TRANSFER TO [facility] ) Justicifation of Admission Dx: Justifications for Admission: Justification of Admission Dx: N/A ALE VALADEZ MD Nov 26, 2019 09:36
--- NOTE | 2019-11-26 18:10 | PATHOLOGY ---
[facility] Accession Number: [id number] . 01 Material submitted: . PART A: duodenum - DUODENUM PART B: stomach - ANTRUM GASTRITIS BX PART C: esophagus - DISTAL ESOPHAGUS BX. Modifiers: distal PART D: colon - TRANSVERSE COLON POLYP. Modifiers: transverse . 01 Clinical history: . Abdominal pain A. R/O celiac . 02 Diagnosis: A. Duodenal biopsies: - No significant pathologic abnormalities. . B. Gastric biopsy, antrum: - Chronic gastritis, mild. . C. 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 . D. Colon biopsies, transverse colon polyp: - Hyperplastic polyp with small mucosal-associated lymphoid aggregate. (JPM:lucille 11/26/2019) [facility] 11/26/2019 0940 Local . 02 Comment: Sections of the duodenal biopsy reveal segments of duodenal and small intestine mucosa. There are focally prominent submucosal Nenita's glands. Where best oriented, the mucosal villi show no sprue-like changes or significant inflammatory changes. . Sections of the gastric biopsy reveal segments of gastric antral/body transition mucosa showing congestion and very mild chronic inflammation. A properly controlled immunoperoxidase for Helicobacter is negative for Helicobacter organisms. . Sections of the distal esophageal biopsy reveal a segment of mildly hyperplastic squamous esophageal mucosa, and a segment of columnar lined mucosa showing mild to moderate chronic inflammation and focal intestinal metaplasia with goblet cells consistent with Mcdonald's change. There is no dysplasia or evidence of malignancy. . Sections of the transverse colon biopsy reveal a hyperplastic polyp containing a small mucosal-associated lymphoid aggregate. There are no adenomatous changes or evidence of malignancy. (JPM:lucille 11/26/2019) . Special stain performed: Immunoperoxidase for Helicobacter on B1, . 02 Electronically signed: . Cosme Mars MD, Pathologist NPI- [id number] . 01 Gross description: . A. The specimen is received in formalin, labeled "Melodie, Manuel, duodenum" and consists of 4 fragments of pink-lawrence tissue measuring 1.3 x 0.4 x 0.3 cm in aggregate which are entirely submitted in A1. . B. The specimen is received in formalin, labeled "Melodie, Manuel, antrum gastritis rule out H. pylori" and consists of 2 fragments of pink-lawrence tissue measuring 0.5 x 0.2 cm and 0.5 x 0.3 cm which are entirely submitted in B1. . C. The specimen is received in formalin, labeled "Melodie, Manuel, distal esophagus BX" and consists of 2 fragments of pink-lawrence tissue measuring 0.4 x 0.3 cm and 0.4 x 0.2 cm which are entirely submitted in C1. . D. The specimen is received in formalin, labeled "Melodie, Manuel, transverse colon polyp" and consists of 2 fragments of lawrence tissue measuring 0.4 x 0.2 cm and 0.3 x 0.3 cm which are entirely submitted in D1. (SDY; 11/25/2019) SYU/SYU 11/25/2019 1649 Local . 02 Pathologist provided ICD-10: K29.50, K20.9, K63.5, R10.9 . 02 CPT . 984963, 265084, 399181, 686006, [id number] Specimen Comment: A courtesy copy of this report has been sent to [phone], [phone] Specimen Comment: [id number], , Specimen Comment: Report sent to ,DR MIRANDA,DR VENCES / DR SOTO Performed at: 01 [facility] [address], [place], [place] [id number] MD Mikal Mcclendon MD Phone: [phone] Performed at: 02 [facility] [place] [address], [place] [id number] MD Cosme Mars MD Phone: [phone]
== END 2019-11-25 21:40 | disposition short-term general hospital (02) | DRG 392 ==
LOC: ER 12:58 → 4 NORTH 15:45
PROVIDERS: ADMIT Internal Medicine; ATTEND Internal Medicine
PROC: 0DB98ZX Excision of Duodenum, Via Natural or Artificial Opening Endoscopic, Diagnostic (ICD-10-PCS; principal; 2019-11-25 11:00)
PROC: 0DBL8ZZ Excision of Transverse Colon, Via Natural or Artificial Opening Endoscopic (ICD-10-PCS; 2019-11-25 11:00)
DX: K52.9 Noninfective gastroenteritis and colitis, unspecified (principal); N13.2 Hydronephrosis with renal and ureteral calculous obstruction; Z20.828 Contact with and (suspected) exposure to other viral communicable diseases; G89.29 Other chronic pain; K21.0 Gastro-esophageal reflux disease with esophagitis; K29.70 Gastritis, unspecified, without bleeding; K59.00 Constipation, unspecified; K63.5 Polyp of colon; K64.8 Other hemorrhoids; K76.0 Fatty (change of) liver, not elsewhere classified; S09.90XA Unspecified injury of head, initial encounter; S13.4XXA Sprain of ligaments of cervical spine, initial encounter; X58.XXXA Exposure to other specified factors, initial encounter; Z80.3 Family history of malignant neoplasm of breast; Z82.49 Family history of ischemic heart disease and other diseases of the circulatory system; Z87.891 Personal history of nicotine dependence; Y93.89 Activity, other specified; Y92.89 Other specified places as the place of occurrence of the external cause; Y99.8 Other external cause status
CPT/HCPCS: 36415; 43239; 45380; 74021; 74176; 76770; 80048; 80053; 81001; 83690; 83735; 85025; 85610; 85730; C9113; J2270; J2704; J3490; J7030; J7120; G0378; U0003-CS